=== PATIENT | female | born 1945 | race Caucasian/White ===

== ENCOUNTER 2016-10-08 06:03 | Day surgery (SDC) | payer MEDICARE, OTHER ==
[~2016-10-08 06:03] MED LIST: AMARYL2 MG PO; AMOXICILLIN500 M1 PO; ARIXTRA2.5 MG/0.5 SQ; ASPIR 8181 MG PO; ASPIRIN325 M3 PO; ASPIRIN325 MG PO; BACTRIM; BENICAR20 MG PO; BETAGAN5 M1 OP; BIOTENE ORALBAL45 ML MM; BISACODYL10 MG RC; BISACODYL5 MG PO; CIPRO500 M1 PO; COREG25 M1 PO; COREG25 MG PO; COUMADIN3 MG PO; COZAAR50 M1 PO; CYMBALTA60 M1 PO; CYMBALTA60 MG PO; DIOVAN160 M PO; DITROPAN XL5 M3 PO; DITROPAN5 MG PO; DULCOLAX10 MG/SUPP RC; GLAUCOMA DROPS OP; GLUCOPHAGE500 MG PO; H PO; HUMALOG100 U/ML SQ; HYDROCODON-ACE1 EA15 PO; K-DUR20 ME1 PO; KEFLEX500 M4 PO; LASIX40 M1 PO; LASIX40 MG PO; MACROBID100 MG/CA1 PO; MELOXICAM7.5 MG PO; METAMUCIL1 PKT PO; METFORMIN HCL500 M2 PO; METHOTREXATE2.5 M1 PO; MILK OF MA400 MG/5 M PO; MOBIC15 M1 PO; MULTI VITAMIN1 EAC1 PO; MULTIVITAMIN1 TAB PO; MULTIVITAMINS1 EAC6 PO; NEURONTIN100 M1 PO; NEXIUM20 MG PO; NEXIUM40 MG PO; NORCO 5/3251 TA1 PO; NORCO 7.5/325 T1 TAB PO; NORCO PO; NORVASC10 M2 PO; NORVASC10 MG PO; NYSTATIN1 EAC1 TOP; OMEPRAZOLE20 M4 PO; OMEPRAZOLE40 M2 PO; OXYCODONE HCL5 M1 PO; PRILOSEC OTC20 MG PO; SENOKOT-S TABLE1 TAB PO; THERAGRAN-M1 TAB PO; TROSPIUM CHLORI20 M1 PO; TRUSOPT10 ML EACH EYE; TYLENOL TA325 MG/TA1 PO; TYLENOL325 MG PO; ULTRAM50 M1 PO; VITAMIN D35000 UNIT PO; VITAMIN D5000 UNI2 PO; VITAMIN D5000 UNIT PO; XALATAN2.5 M1 EACH EYE; XALATAN2.5 ML OP; ZOFRAN ODT4 MG/UDTAB PO; [UNRECOGNIZED DRUG - OTHER]; [UNRECOGNIZED DRUG - OTHER] OP
[2016-10-08 07:12] LABS: ANION GAP 16 mmol/L (0-20); BLOOD UREA NITROGEN 15 mg/dl (6-24); CALCIUM 8.9 mg/dl (8.5-10.5); CARBON DIOXIDE-VENOUS 27 mmol/L (22-32); CHLORIDE 98 mmol/l (96-110); CREATININE 1.66 mg/dl (0.50-1.10); GLUCOSE 127 mg/dL (70-110); POTASSIUM 3.3 mmol/L (3.7-5.1); SODIUM 138 mmol/L (135-145); eGFR VALUE FOR BLACK 36 mL/Min
== END 2016-10-08 10:58 ==
LOC: ENDOS 06:03 → SHSB 06:07
PROVIDERS: Anesthesiology
PROC: 0DBL8ZZ Excision of Transverse Colon, Via Natural or Artificial Opening Endoscopic (ICD-10-PCS; principal; 2016-10-08)
PROC: 0DBM8ZZ Excision of Descending Colon, Via Natural or Artificial Opening Endoscopic (ICD-10-PCS; 2016-10-08)
PROC: 0DBN8ZZ Excision of Sigmoid Colon, Via Natural or Artificial Opening Endoscopic (ICD-10-PCS; 2016-10-08)
PROC: 0DBK8ZX Excision of Ascending Colon, Via Natural or Artificial Opening Endoscopic, Diagnostic (ICD-10-PCS; 2016-10-08)
PROC: 3E0H8GC Introduction of Other Therapeutic Substance into Lower GI, Via Natural or Artificial Opening Endoscopic (ICD-10-PCS; 2016-10-08)
DX: Z12.11 Encounter for screening for malignant neoplasm of colon (principal); D12.2 Benign neoplasm of ascending colon; D12.4 Benign neoplasm of descending colon; D12.5 Benign neoplasm of sigmoid colon; K63.5 Polyp of colon; K64.0 First degree hemorrhoids; I11.0 Hypertensive heart disease with heart failure; I50.9 Heart failure, unspecified; E66.9 Obesity, unspecified; M79.7 Fibromyalgia; K21.9 Gastro-esophageal reflux disease without esophagitis; Z79.2 Long term (current) use of antibiotics; Z79.899 Other long term (current) drug therapy; Z90.49 Acquired absence of other specified parts of digestive tract; Z98.49 Cataract extraction status, unspecified eye; Z98.890 Other specified postprocedural states